=== PATIENT | female | born 1985 | race Caucasian/White ===

== ENCOUNTER → 2016-09-21 | Outpatient (CLI) | payer BC ==
[~2016-09-21] MED LIST: DOCU10CA PO; IBUP80TA PO; PERCOCET PO; PRENTAB9 PO
== END ==
LOC: M WUC 14:28
PROVIDERS: ATTEND Obstetrics & Gynecology
DX: N91.1 Secondary amenorrhea (principal)

== ENCOUNTER → 2017-04-25 | Outpatient (CLI) | payer BC ==
[2017-04-25 18:21] LABS: BASO % 0.4 % (0.0-1.0); EOS # 0.1 K/mm3 (0.0-0.50); EOS % 1.1 % (0.0-3.0); LARGE UNSTAINED CELL # 0.1 K/mm3 (0.0-0.4); LYMPH # 2.1 K/mm3 (1.5-4.5); LYMPH % 29.4 % (24.0-44.0); MEAN CORPUSCULAR HGB CONC 34.1 g/dl (32.0-36.5); MEAN CORPUSCULAR VOLUME 87.9 fl (80.0-96.0); MONO # 0.4 K/mm3 (0.0-0.8); MONO % 5.7 % (0.0-5.0); NEUTROPHILS # 4.2 K/mm3 (1.8-7.7); NEUTROPHILS % 62.4 % (36.0-66.0); PLATELET COUNT, AUTOMATED 264 k/mm3 (150-450); RED CELL DISTRIBUTION WIDTH 13.7 % (11.5-14.5); WHITE BLOOD COUNT 6.8 K/mm3 (4.0-10.0)
[2017-04-28 11:09] LABS: HBsAg Prenatal NEGATIVE (NEGATIVE)
== END ==
LOC: M SMT 14:44
PROVIDERS: ATTEND Advanced Practice Midwife
DX: Z34.81 Encounter for supervision of other normal pregnancy, first trimester (principal)

== ENCOUNTER 2017-05-25 10:51 | Emergency (ER) | payer BC ==
[~2017-05-25] VITALS: Ht 154.9 cm; Wt 285.0 kg
[2017-05-25 11:39] VITALS: BP 155/85
--- NOTE | 2017-05-25 12:46 | REP ---
Clinical: Early with vaginal bleeding. Technique: Transabdominal first trimester obstetrical ultrasound with color Doppler evaluation. Findings: Intrauterine is identified. pole measuring 22.7 mm corresponds to 9 weeks 0 days gestational age. No motion or cardiac activity is appreciated findings are compatible with demise. Small subchorionic hemorrhage superior to the gestational sac noted. Maternal ovaries are normal in appearance. Right ovary measures 3.2 x 2.0 x 2.6 cm. Left ovary measures 2.4 x 2.2 x 2.1 cm. No pelvic fluid. Impression: Findings compatible with demise. Signed by Bar Garcia MD 05/25/2017 12:36 P
== END 2017-05-25 13:00 | disposition home or self-care (01) ==
LOC: M ED 10:51
DX: O02.1 Missed abortion (principal); Z3A.11 11 weeks gestation of pregnancy

== ENCOUNTER → 2017-12-19 | Outpatient (CLI) | payer BC ==
[2017-12-19 17:54] LABS: HCG, SERUM QUANTITATIVE 16 MIU/ML
== END ==
LOC: M WUC 14:19
DX: Z32.01 Encounter for pregnancy test, result positive (principal)

== ENCOUNTER → 2017-12-21 | Outpatient (REF) | payer BC ==
[2017-12-21 13:02] LABS: HCG, SERUM QUANTITATIVE 35 MIU/ML
== END ==
LOC: M LAB 11:58
DX: Z32.01 Encounter for pregnancy test, result positive (principal)
CPT/HCPCS: 84702

== ENCOUNTER → 2018-02-06 | Outpatient (CLI) | payer BC ==
[2018-02-06 20:02] LABS: GLUCOSE CHALLENGE TEST 1 HOUR 140 MG/DL (LESS THAN 140)
[2018-02-09 11:08] LABS: RUBELLA IgG QUALITATIVE IMMUNE (IMMUNE)
[2018-02-09 11:38] LABS: HIV 1&2 SCREEN CENTAUR NEGATIVE (NEGATIVE)
[2018-02-09 11:38] LABS: HEPATITIS C VIRUS ABY INDEX < 0.0 INDEX (<0.8)
[2018-02-09 11:40] LABS: HBsAg Prenatal NEGATIVE (NEGATIVE)
== END ==
LOC: M SMT 13:43
DX: Z34.81 Encounter for supervision of other normal pregnancy, first trimester (principal); Z36.89 Encounter for other specified antenatal screening; Z3A.10 10 weeks gestation of pregnancy
CPT/HCPCS: 82950

== ENCOUNTER → 2018-03-18 | Outpatient (CLI) | payer BC ==
[2018-03-18 08:11] LABS: GLUCOSE, FASTING 92 MG/DL (LESS THAN 95)
[2018-03-18 09:43] LABS: 1 HR GLUCOSE 141 MG/DL (LESS THAN 180)
[2018-03-18 10:02] LABS: 2 HR GLUCOSE 105 MG/DL (LESS THAN 155)
[2018-03-18 10:51] LABS: 3 HR GLUCOSE 89 MG/DL (LESS THAN 140)
== END ==
LOC: M LAB 06:58
DX: Z34.81 Encounter for supervision of other normal pregnancy, first trimester (principal); Z3A.00 Weeks of gestation of pregnancy not specified
CPT/HCPCS: 82951

== ENCOUNTER → 2018-03-27 | Outpatient (CLI) | payer BC | LOC: M RAD 17:20 | DX: O34.211 Maternal care for low transverse scar from previous cesarean delivery (principal) | CPT/HCPCS: 76817 ==

== ENCOUNTER → 2018-04-06 | Outpatient (REF) | payer BC ==
[2018-04-06 19:29] LABS: CHLAMYDIA DNA AMPLIFICATION NEGATIVE (NEGATIVE); GC DNA AMPLIFICATION NEGATIVE (NEGATIVE)
== END ==
LOC: M LAB REF 17:02
DX: O34.211 Maternal care for low transverse scar from previous cesarean delivery (principal)
CPT/HCPCS: 87591

== ENCOUNTER → 2018-05-22 | Outpatient (CLI) | payer BC ==
[2018-05-22 09:44] LABS: HEMATOCRIT 33.2 % (36.0-47.0); HEMOGLOBIN 11.1 g/dl (12.0-15.5); MEAN CORPUSCULAR HEMOGLOBIN 31.9 pg (27.0-33.0); MEAN CORPUSCULAR HGB CONC 33.4 g/dl (32.0-36.5); MEAN CORPUSCULAR VOLUME 95.4 fl (80.0-96.0); PLATELET COUNT, AUTOMATED 263 10^3/uL (150-450); RED BLOOD COUNT 3.48 10^6/uL (4.00-5.40); RED CELL DISTRIBUTION WIDTH 14.2 % (11.5-14.5); WHITE BLOOD COUNT 8.3 10^3/uL (4.0-10.0)
[2018-05-22 09:57] LABS: GLUCOSE, FASTING 87 MG/DL (LESS THAN 95)
[2018-05-22 10:28] LABS: 1 HR GLUCOSE 159 MG/DL (LESS THAN 180)
[2018-05-22 11:28] LABS: 2 HR GLUCOSE 122 MG/DL (LESS THAN 155)
[2018-05-22 12:33] LABS: 3 HR GLUCOSE 101 MG/DL (LESS THAN 140)
== END ==
LOC: M LAB 08:11
DX: O34.211 Maternal care for low transverse scar from previous cesarean delivery (principal); Z3A.00 Weeks of gestation of pregnancy not specified
CPT/HCPCS: 82951

== ENCOUNTER → 2018-06-16 | Outpatient (REF) | payer BC | LOC: M LAB REF 16:54 | DX: O34.219 Maternal care for unspecified type scar from previous cesarean delivery (principal) | CPT/HCPCS: 87086 ==

== ENCOUNTER → 2018-08-05 | Outpatient (REF) | payer BC | LOC: M LAB REF 17:19 | DX: O34.219 Maternal care for unspecified type scar from previous cesarean delivery (principal) | CPT/HCPCS: 87081 ==

== ENCOUNTER 2018-08-20 07:00 | Inpatient (IN) | payer BC ==
[2018-08-20 08:10] LABS: HEMOGLOBIN 10.8 g/dl (12.0-15.5); MEAN CORPUSCULAR HEMOGLOBIN 32.5 pg (27.0-33.0); MEAN CORPUSCULAR HGB CONC 33.8 g/dl (32.0-36.5); MEAN CORPUSCULAR VOLUME 96.4 fl (80.0-96.0); PLATELET COUNT, AUTOMATED 212 10^3/uL (150-450); RED BLOOD COUNT 3.32 10^6/uL (4.00-5.40); RED CELL DISTRIBUTION WIDTH 14.2 % (11.5-14.5); WHITE BLOOD COUNT 7.9 10^3/uL (4.0-10.0)
[2018-08-20] MEDS: LR 1,000 ML IV ×4 (08:58→20:26)
[2018-08-20] MEDS: PRENATAL VITAMINS CHEWABLE TABLET PO (09:00)
[2018-08-20] MEDS: ceFAZolin SOD 1 GM in D5W MINI-BAG PLUS 50 ML IV (11:51)
[2018-08-20] MEDS: BICITRA 30ML SOLN UDC PO (12:07)
[2018-08-20] MEDS ORDERED: METOCLOPRAMIDE INJ 10MG/2ML VIAL (J2765) IV (12:20)
[2018-08-20] MEDS ORDERED: NALBUPHINE HCL 10 MG/ML AMP (J2300) IV (12:20)
[2018-08-20] MEDS ORDERED: ONDANSETRON 4MG/2ML VIAL (J2405) IV ×3 (12:20→14:15)
[2018-08-20] MEDS ORDERED: NALOXONE INJ 0.4 MG/1 ML VIAL (J2310) IV ×2 (12:20)
[2018-08-20] MEDS ORDERED: ONDANSETRON 4MG/2ML VIAL (J2405) As Ordered (12:32)
[2018-08-20] MEDS ORDERED: MORPHINE PRES-FREE INJ 10 MG/10 ML VIAL (J2274) As Ordered (12:32)
[2018-08-20] MEDS ORDERED: KETOROLAC 60 MG/2 ML VIAL (J1885) As Ordered (12:32)
[2018-08-20] MEDS ORDERED: BUPIVACAINE/DEXTROSE 0.75% 2 ML AMP As Ordered (12:32)
[2018-08-20] MEDS ORDERED: OXYTOCIN INJ 10 UNITS/ML VIAL (J2590) As Ordered (12:32)
[2018-08-20] MEDS ORDERED: ePHEDrine SULFATE 25 MG/5 ML(5MG/ML) SYRINGE As Ordered ×2 (12:33→12:53)
[2018-08-20] MEDS ORDERED: fentaNYL 100 MCG/2 ML INJECTION (J3010) As Ordered ×2 (13:11→14:31)
[2018-08-20] MEDS ORDERED: PROPOFOL 200 MG/20 ML VIAL As Ordered (13:11)
[2018-08-20] MEDS ORDERED: RHOGAM 300 MCG (1500 IU) INJ (J2790) IM (13:30)
[2018-08-20] MEDS ORDERED: PROMETHAZINE 25 MG TAB PO (13:30)
[2018-08-20] MEDS ORDERED: MEASLES,MUMPS,RUBELLA VACCINE INJ (MMR-II) (90707) SC (13:30)
[2018-08-20] MEDS ORDERED: OXYTOCIN 30 UNITS IN 0.9% NaCl 500ML IV BAG (J2590) As Ordered (13:35)
[2018-08-20] MEDS ORDERED: NORCO, ANEXSIA 5/325MG TABLET (HYDROcodone/ACETAMINOPHEN) PO (14:15)
[2018-08-20] MEDS: fentaNYL 100 MCG/2 ML INJECTION (J3010) IV (14:33)
[2018-08-20] MEDS: OXYTOCIN DRIP 30 UNITS in APPROPRIATE DILUENT 1 EA IV (14:52)
[2018-08-20] MEDS: KETOROLAC 30 MG/ML VIAL (J1885) IV (19:05)
[2018-08-20] MEDS: DOCUSATE SODIUM 100 MG CAP PO (20:58)
[2018-08-21] MEDS: KETOROLAC 30 MG/ML VIAL (J1885) IV ×2 (01:08→10:03)
[2018-08-21] MEDS: LR 1,000 ML IV ×2 (04:34→05:26)
[2018-08-21 07:51] LABS: MEAN CORPUSCULAR HEMOGLOBIN 32.8 pg (27.0-33.0); MEAN CORPUSCULAR HGB CONC 33.6 g/dl (32.0-36.5); MEAN CORPUSCULAR VOLUME 97.7 fl (80.0-96.0); PLATELET COUNT, AUTOMATED 153 10^3/uL (150-450); RED BLOOD COUNT 2.56 10^6/uL (4.00-5.40); RED CELL DISTRIBUTION WIDTH 14.6 % (11.5-14.5); WHITE BLOOD COUNT 8.2 10^3/uL (4.0-10.0)
[2018-08-21] MEDS: PRENATAL VITAMINS CHEWABLE TABLET PO (08:04)
[2018-08-21] MEDS: DOCUSATE SODIUM 100 MG CAP PO ×2 (08:04→21:19)
[2018-08-21 08:11] LABS: HEMOGLOBIN 8.4 g/dl (12.0-15.5)
[2018-08-21] MEDS: ADACEL/BOOSTRIX VACCINE (DIPHTH/PERTUSS/ACELL/TETANUS)0.5ML SYR (90715) IM (10:05)
[2018-08-21] MEDS ORDERED: IBUPROFEN 800 MG TAB PO (15:00)
[2018-08-21] MEDS: PERCOCET 5MG/325MG TAB PO (16:59)
[2018-08-21] MEDS: IBUPROFEN 800 MG TAB PO (18:16)
[2018-08-22] MEDS: IBUPROFEN 800 MG TAB PO ×2 (02:06→09:51)
[2018-08-22] MEDS: PERCOCET 5MG/325MG TAB PO (05:59)
[2018-08-22] MEDS: PRENATAL VITAMINS CHEWABLE TABLET PO (07:41)
[2018-08-22] MEDS: DOCUSATE SODIUM 100 MG CAP PO (07:41)
== END 2018-08-22 12:20 | disposition home or self-care (01) | DRG 540 ==
LOC: M LDI 07:00 → M OBS 15:10
PROVIDERS: Obstetrics & Gynecology
PROC: 10D00Z1 Extraction of Products of Conception, Low, Open Approach (ICD-10-PCS; principal; 2018-08-20 10:30)
PROC: 0UB70ZZ Excision of Bilateral Fallopian Tubes, Open Approach (ICD-10-PCS; 2018-08-20 10:30)
DX: O34.211 Maternal care for low transverse scar from previous cesarean delivery (principal); Z30.2 Encounter for sterilization; Z3A.39 39 weeks gestation of pregnancy; Z37.0 Single live birth

== ENCOUNTER → 2019-09-03 | Outpatient (CLI) | payer BC ==
[~2019-09-03] MED LIST changes: +IBUP-1114 PO; +IBUP1TAB7 PO; +OXYC1TAB23 PO; +PRENTAB29 PO
--- NOTE | 2019-09-03 15:06 | REP ---
MRI LEFT KNEE: TECHNIQUE: Axial proton density fat saturation, sagittal proton density T2 STIR, water excitation, coronal proton density, proton density fat saturation. The menisci show no definite evidence of a tear. The cruciate and collateral ligaments are intact. Medial and lateral patellar retinacula are intact. Extensor mechanism is intact. There is mild global chondromalacia, particularly along the lateral patellar facet. There is a moderate degree of chondromalacia along the medial femoral condyle with fissuring of an anterior to posterior orientation along the weightbearing surface of the medial femoral condyle. The fissure extends close to and possibly extends to the cortex of the bone and there is a probable 5 mm cartilaginous flap at the posterior margin of this fissure. There is no abnormal bone marrow signal. There is no bone marrow edema or occult fracture. There is a moderate joint effusion. No popliteal cyst is seen. IMPRESSION: No definite meniscal tear. Cruciate and collateral ligaments intact. Mild global chondromalacia. Curvilinear fissure extending in an anterior to posterior direction in the medial femoral condyle extending close to or down to the osseous surface. At the posterior margin of the fissure there is a suggestion of a 5 mm cartilaginous flap. Moderate joint effusion. Electronically Signed by Sam Birmingham MD 09/03/2019 05:15 P
== END ==
LOC: M PLARAD 10:01
PROVIDERS: ATTEND Physician Assistant Surgical
DX: M25.562 Pain in left knee (principal); M79.605 Pain in left leg

== ENCOUNTER → 2020-03-04 | Outpatient (CLI) | payer BC | LOC: M LABSMTC 08:05 | PROVIDERS: ATTEND Anesthesiology | DX: Z11.59 Encounter for screening for other viral diseases (principal); Z03.89 Encounter for observation for other suspected diseases and conditions ruled out | CPT/HCPCS: C9803; U0003 ==

== ENCOUNTER 2020-03-07 08:30 | Day surgery (SDC) | payer BC ==
[~2020-03-07] VITALS: Ht 154.9 cm; Wt 139.8 kg
[~2020-03-07 08:30] MED LIST changes: +LIDOCAINE 1% MDV 20ML VIAL SQ PRN
[2020-03-07] MEDS ORDERED: LR 1,000 ML IV ONE (08:45)
[2020-03-07] MEDS ORDERED: MIDAZOLAM INJ 2MG/2ML VIAL (J2250 PER 1MG) As Ordered ONE ×2 (08:54→10:59)
[2020-03-07] MEDS ORDERED: fentaNYL 100 MCG/2 ML INJECTION (J3010) As Ordered ONE (08:55)
[2020-03-07] MEDS ORDERED: dexameTHASONE 4 MG/ML 1ML VIAL (J1100 PER 1MG) As Ordered ONE (08:59)
[2020-03-07] MEDS ORDERED: ceFAZolin SOD 2 GM in IV 1 EA IV ONE (10:00)
[2020-03-07] MEDS ORDERED: ceFAZolin SOD 1 GM in D5W MINI-BAG PLUS 50 ML IV ONE (10:00)
[2020-03-07] MEDS ORDERED: BUPIVACAINE HCL 0.5% 30 ML VIAL As Ordered ONE (10:17)
[2020-03-07] MEDS ORDERED: SCOPOLAMINE 1MG TRANSDERMAL PATCH As Ordered ONE (10:36)
[2020-03-07] MEDS ORDERED: SCOPOLAMINE 1MG TRANSDERMAL PATCH TOP ONE (10:45)
[2020-03-07] MEDS ORDERED: ONDANSETRON 4MG/2ML VIAL As Ordered ONE (11:14)
[2020-03-07] MEDS ORDERED: oxyCODONE 5MG TAB PO PRN (12:00)
[2020-03-07] MEDS ORDERED: ONDANSETRON 4MG/2ML VIAL IV PRN (12:00)
[2020-03-07] MEDS ORDERED: fentaNYL 100 MCG/2 ML INJECTION (J3010) IV PRN (12:00)
[2020-03-07] MEDS ORDERED: HYDROMORPHONE HCL 0.5 MG/ 0.5 ML SYRINGE (J1170 PER 1) IV PRN (12:00)
[2020-03-07] MEDS ORDERED: LR 1,000 ML IV SCH ×2 (12:00)
[2020-03-07] MEDS ORDERED: FIORICET TAB PO SCH (15:45)
[2020-03-07] MEDS ORDERED: ACETAMINOPHEN 500 MG TAB PO ONE (16:00)
[2020-03-07 17:54] VITALS: BP 130/80
== END 2020-03-07 18:00 | disposition home or self-care (01) ==
LOC: M SDC 08:30
PROVIDERS: ATTEND Orthopaedic Surgery
DX: M22.2X2 Patellofemoral disorders, left knee (principal); M17.12 Unilateral primary osteoarthritis, left knee; D64.9 Anemia, unspecified; G93.2 Benign intracranial hypertension; G43.909 Migraine, unspecified, not intractable, without status migrainosus
CPT/HCPCS: 29873; 29879; J0690; J1100; J2250; J2405; J3010

== ENCOUNTER → 2021-11-16 | Outpatient (CLI) | payer BC ==
[~2021-11-16] MED LIST changes: +ISOVUE-370 76% 100ML VIAL As Ordered ONE; -LIDOCAINE 1% MDV 20ML VIAL SQ PRN
== END ==
LOC: M RAD 07:43
DX: Z00.00 Encounter for general adult medical examination without abnormal findings (principal); G93.2 Benign intracranial hypertension
CPT/HCPCS: 70496; Q9967

== ENCOUNTER → 2022-07-05 | Outpatient (CLI) | payer BC | LOC: M RAD 09:41 | PROVIDERS: ATTEND Nurse Practitioner Family | DX: G93.2 Benign intracranial hypertension (principal) | CPT/HCPCS: 70496; Q9967 ==

== ENCOUNTER → 2023-08-08 | Outpatient (CLI) | payer BC | LOC: M RAD 09:40 | PROVIDERS: ATTEND Nurse Practitioner Family | DX: G93.2 Benign intracranial hypertension (principal) | CPT/HCPCS: 70496; Q9967 ==